=== PATIENT | male | born 1975 | race Hispanic/Latino ===

== ENCOUNTER 2019-11-12 06:27 | Day surgery (SDC) | payer OTHER ==
[2019-09-04 10:16] LABS: Urine Appearance CLEAR; Urine Bilirubin NEGATIVE (NEG); Urine Blood NEGATIVE (NEG); Urine Color YELLOW; Urine Glucose NEGATIVE (NEG); Urine Protein NEGATIVE (NEG); Urine Urobilinogen 0.2 mg/dL (0.2-1.0); Urine pH 5.5 (5.0-7.0)
[2019-09-04 10:17] LABS: Urine Microscopic Reflex NO UMIC
[2019-09-04 10:23] LABS: Absolute Lymphocytes (CBC) 2.3 K/uL (0.7-4.9); Basophils % 0.8 % (0-1.3); Hematocrit 47.8 % (39.6-49.0); Lymphocytes % 30.6 % (15.3-44.8); MPV 8.6 fL (7.6-11.3); RBC Red Blood Cell Count 5.77 M/uL (4.33-5.43)
[2019-09-04 10:26] LABS: Protime INR 0.88
[2019-09-04 10:28] LABS: Albumin 3.9 g/dL (3.4-5.0); Bilirubin Total 0.6 mg/dL (0.2-1.0); Potassium 3.9 mmol/L (3.5-5.1); Protein, Total 7.4 g/dL (6.4-8.2)
[2019-11-08 13:09] LABS: Absolute Lymphocytes (CBC) 1.8 K/uL (0.7-4.9); Basophils % 0.9 % (0-1.3); Hematocrit 43.1 % (39.6-49.0); Lymphocytes % 27.1 % (15.3-44.8); MPV 8.6 fL (7.6-11.3); RBC Red Blood Cell Count 5.09 M/uL (4.33-5.43)
[2019-11-08 13:21] LABS: Protime INR 0.94
[2019-11-08 13:38] LABS: Albumin 3.8 g/dL (3.4-5.0); Bilirubin Total 0.7 mg/dL (0.2-1.0); Protein, Total 7.4 g/dL (6.4-8.2)
[2019-11-12] MEDS ORDERED: NA CHLORIDE 0.9% 1,000 ML ONE ×2 (06:46→09:20)
[2019-11-12] MEDS: BUPIVACAINE 0.25% PF 10 ML VIAL ONE ×2 (07:16→07:55)
[2019-11-12] MEDS ORDERED: MIDAZOLAM HCL 2 MG/2 ML INJ ONE (07:18)
[2019-11-12] MEDS ORDERED: propofoL 200 MG/20 ML VIAL IV ONE (07:18)
[2019-11-12] MEDS ORDERED: FENTANYL CITR 100 MCG/2 ML ONE ×2 (07:18→08:02)
[2019-11-12] MEDS ORDERED: LIDOCAINE 2% MPF 5 ML VIAL ONE (07:18)
[2019-11-12] MEDS ORDERED: ONDANSETRON 4 MG/2 ML VIAL ONE ×2 (07:24→10:03)
[2019-11-12] MEDS ORDERED: CEFAZOLIN/SWI 1gm 2 GM/20 ML SYR ONE (07:37)
[2019-11-12] MEDS ORDERED: ROCURONIUM 50 MG/5 ML VIAL IV ONE (07:50)
[2019-11-12] MEDS ORDERED: dexAMETHasone 10 MG/ML VIAL ONE (08:02)
[2019-11-12] MEDS ORDERED: GLYCOPYRROLATE 0.2 MG/ML SYR ONE (08:20)
[2019-11-12] MEDS ORDERED: KETOROLAC 30 MG/ML INJ ONE (08:21)
[2019-11-12] MEDS ORDERED: BUPIVACAINE 0.25% PF 10 ML VIAL ONE (09:05)
[2019-11-12] MEDS ORDERED: HYDROCODONE/APAP 10/325 TAB ONE (10:30)
[2019-11-12 10:54] VITALS: TEMP 98; O2SAT 100
[2019-11-12 11:36] VITALS: BP 118/70
--- NOTE | 2019-12-10 09:52 | OP ---
Date of Procedure: 11/12/2019 Surgeon: CHAI JACQUES Stringed Instrument Tuner: Nurse practitioner, Lucio. Preoperative Diagnosis: Right hydrocele. Postoperative Diagnosis: Right hydrocele. Procedure Performed: Right hydrocelectomy. Anesthesia: General. Procedure In Detail: With the patient in the supine position on the operating table, after the [facility] induction of anesthesia, the genitalia were shaved, prepped and draped in the usual sterile f ashion. A transverse incision was made over the right hemiscrotum over the large right hydrocele. T his was carried down through the dartos to expose parietal tunica vaginalis. Using sharp and blunt d issection, the hydrocele sac was brought up into the operative field. The hydrocele sac was opened l ongitudinally and the fluid was drained. The incision was lengthened. The portion of the hydrocele sac was sent for pathology. After obtaining very meticulous complete hemostasis, the hydrocele sac w as then rotated posteriorly behind the testicle and it was sutured up toward the cord with a running locking 3-0 chromic and Vicryl sutures. This effectively reversed the hydrocele sac to prevent recur rence. After complete hemostasis was obtained, we were assured that there was no tightness at all al deirdre the spermatic cord, we thoroughly irrigated the area, replaced the testis into the scrotal compar tment and then closed the scrotum in 3 layers with running 3-0 chromic suture for the deeper areolar tissue, 3-0 chromic for the dartos muscle and then a 4-0 Monocryl subcuticular skin closure was place d. Dermabond, Telfa, fluffs and a scrotal support were applied. The patient was awakened, extubated , and transferred by stretcher to recovery room in satisfactory condition. There were no complications. Blood loss was less than 15 cc. Counts were correct. Specimen was as noted above. ANDREW/ANA LUISA Voice ID: [id number] Report ID: [id number]
== END 2019-11-12 11:20 | disposition home or self-care (01) ==
LOC: OR 06:27
PROVIDERS: ATTEND Internal Medicine Hematology & Oncology
PROC: 0VB60ZZ Excision of Right Tunica Vaginalis, Open Approach (ICD-10-PCS; principal; 2019-11-12 07:30)
DX: N43.3 Hydrocele, unspecified (principal); I10 Essential (primary) hypertension; E11.9 Type 2 diabetes mellitus without complications; E07.9 Disorder of thyroid, unspecified; Z20.828 Contact with and (suspected) exposure to other viral communicable diseases
CPT/HCPCS: 93005; 87088; 85025 ×2; 36415 ×2; 85610 ×2; 82947; 88302; 85730 ×2; 81003; 80053 ×2; 55040; U0002 ×2; J2704; J2250; J3010 ×2; J1100; J0690; J7030 ×2; J2405 ×2; 87086